=== PATIENT | female | born 1980 | race Caucasian/White ===

== ENCOUNTER 2018-08-16 10:12 | Emergency (ER) | payer OTHER ==
[~2018-08-16] VITALS: Ht 157.5 cm; Wt 57.1 kg
[~2018-08-16 10:12] MED LIST: ADDERALL 20 MG20 M1 PO; ALBUTEROL INHAL17 GM; ALBUTEROL2.5 MG/31 INH; ANTIVERT25 MG PO; BACTRIM DS TAB1 EACH PO; BENTYL20 MG PO; CALCIUM WITH M1 EACH PO; CENTRUM SILVER1 EAC2 PO; CLONAZEPAM 0.50.5 M1 PO; FISH OIL 1,001000 M2 PO; FLEXERIL; FLEXERIL PO; FLOVENT HFA 2220 MCG IH; HYDROCODONE-AP1 EAC6 PO; IBUPROFEN 800800 MG PO; IRON325 PO; KEFLEX500 M1 PO; KLONOPIN0.5 MG PO; MACROBID 100 M100 M1 PO; MEDROL DOSPAK21 TA1 PO; MEDROLDOSEPACK PO; MIDRIN CAPSULE1 CAP PO; MOBIC; MOBIC15 MG PO; MOBIC7.5 MG PO; NOHOMEMEDICATIONS; NORCO 5-325 TA1 EACH PO; NORCO 7.5-3251 EACH PO; OSELB75 PO; PENICILLIN VK500 MG PO; PERCOCET 5-3251 EACH PO; PHENERGAN 25 MG25 M1 PO; PREDNISONE 10 M10 MG PO; PREDNISONE 20 M20 M1 PO; PREDNISONE 20 M20 MG PO; PRINIVIL20 M1 PO; PROAIR HFA8.5 GM INH; RELAFEN500 MG PO; RESTORIL15 MG; TOPAMAX 25 MG T25 M1; TOPAMAX 25 MG T25 M1 PO; TRAMADOL 50 MG50 MG; TRAMADOL 50 MG50 MG PO; TRIAMCINOLONE A80 G2 TOP; TRILEPTAL150 MG; TRILEPTAL150 MG PO; VENTOLIN HFA 1818 GM INH; VENTOLIN17 GM INH; VICODIN 5-5001 EACH; VICODIN 5-5001 EACH PO; VISTARIL 25 MG25 M1; VITAMIN B122500 MCG PO; XANAX 0.25 MG0.25 MG; XANAX PO; ZOLOFT; ZOLOFT100 MG PO; ZOLOFT25 MG PO; [UNRECOGNIZED DRUG - OTHER]
[2018-08-16 10:42] LABS: ABSOLUTE NEUTROPHILS 6.4 thou/uL (1.4-8.2); BASOPHILS 0.5 % (0.0-2.0); EOSINOPHILS 0.5 % (0.0-3.0); HEMOGLOBIN 14.7 gm/dL (12.0-15.0); LYMPHOCYTES 21.2 % (24.0-44.0); MCH 31.8 pg (26.0-34.0); MCV 91.1 fL (80.0-100.0); MONOCYTES 4.7 % (1.0-8.0); PLATELET COUNT 292 thou/uL (150-400); POLYS 73.1 % (36.0-66.0); RBC 4.62 mil/uL (4.20-5.00); RDW 13.3 % (10.5-14.5); WBC 8.8 thou/uL (4.0-11.0)
[2018-08-16 10:48] LABS: URINE BILIRUBIN NEGATIVE (Negative); URINE BLOOD NEGATIVE (Negative); URINE CLARITY CLEAR; URINE COLOR YELLOW; URINE GLUCOSE-RANDOM* NEGATIVE (Negative); URINE KETONES NEGATIVE (Negative); URINE LEUKOCYTES-REFLEX NEGATIVE (Negative); URINE NITRITE-REFLEX NEGATIVE (Negative); URINE PROTEIN (DIPSTICK) NEGATIVE (Negative); URINE UROBILINOGEN 0.2 E.U./dl (0.2-1.0)
[2018-08-16 10:52] LABS: CREATININE 0.7 mg/dL (0.6-1.0); POTASSIUM 3.8 mmol/L (3.5-5.1)
[2018-08-16 10:54] LABS: AMP/METHAMP Negative (Negative); BARBITURATES Negative (Negative); BENZODIAZEPINES Negative (Negative); COCAINE Negative (Negative); METHADONE Negative (Negative); OPIATES Negative (Negative); PCP Negative (Negative)
[2018-08-16 13:08] LABS: URINE CREATININE-RANDOM* 44.8 mg/dL
[2018-08-16 15:05] LABS: CALCIUM 8.1 mg/dL (8.5-10.1); CREATININE 0.6 mg/dL (0.6-1.0); POTASSIUM 3.9 mmol/L (3.5-5.1)
[2018-08-16] MEDS ORDERED: ZYRTEC10 M4 PO (15:50)
[2018-08-16] MEDS ORDERED: UNISOM25 MG PO (15:51)
[2018-08-16] MEDS ORDERED: TYLENOL325 M1 PO (15:51)
[2018-08-16] MEDS ORDERED: BIOTIN1 M1 PO (15:52)
[2018-08-16] MEDS ORDERED: NICOTINE TRANSD21 M1 (15:52)
[2018-08-16] MEDS ORDERED: PROAIR HFA8.5 GM PO (15:55)
[2018-08-16 17:56] VITALS: BP 100/54
[2018-08-16 18:10] VITALS: BP 121/78
[2018-08-16 19:53] VITALS: BP 98/52
== END 2018-08-16 19:55 | disposition short-term general hospital (02) ==
LOC: ER 10:12 → EROBS 15:19
PROVIDERS: Emergency Medicine
DX: E87.1 Hypo-osmolality and hyponatremia (principal); H52.4 Presbyopia; J45.909 Unspecified asthma, uncomplicated; F17.210 Nicotine dependence, cigarettes, uncomplicated; Z90.49 Acquired absence of other specified parts of digestive tract; Z79.899 Other long term (current) drug therapy; Z88.1 Allergy status to other antibiotic agents